=== PATIENT | male | born 1990 | race Caucasian/White ===

== ENCOUNTER → 2024-09-24 14:04 | Outpatient (REF) | payer BC, SELFPAY ==
[2024-10-03 04:36] LABS: HPV, High Risk Not Detected; HPV, High Risk Source Anal
== END ==
LOC: CLAB 14:04
PROVIDERS: ATTENDING PHYSICIAN Surgery
DX: Z86.19 Personal history of other infectious and parasitic diseases (principal)
CPT/HCPCS: 87624; 88112

== ENCOUNTER 2024-11-24 18:22 | Observation (INO) | payer OTHER, SELFPAY ==
[2024-11-24] VITALS (7 sets, daily range): BP systolic 104–133; BP diastolic 71–95; BMI 25.9; BMI 25.5
[2024-11-24 13:17] LABS: % Basophils 0.4 % (0-2); % Eosinophils 0.5 % (0-6); % Immature Granulocytes 0.9 % (0-0.5); % Lymphocytes 8.8 % (20.5-51.1); % Monocytes 5.5 % (1.7-9.3); % Neutrophils 83.9 % (42.2-75.2); Absolute Basophils 0.1 10^3/uL (0-0.2); Absolute Eosinophils 0.1 10^3/uL (0-0.7); Absolute Immature Granulocytes 0.2 10^3/uL (0-0.05); Absolute Lymphocytes 1.7 10^3/uL (1.2-3.4); Absolute Monocytes 1.1 10^3/uL (0.1-0.6); Absolute Neutrophils 15.9 10^3/uL (1.4-6.5); Hematocrit 42.4 % (39.0-52.0); Hemoglobin 14.5 g/dL (13.0-18.0); Mean Corp Hgb Conc. 34.2 g/dL (33.0-37.0); Mean Corpuscular Hgb 30.3 pg (27.0-31.0); Mean Corpuscular Volume 88.7 fL (80.0-94.0); Mean Platelet Volume 10.1 fL (7.4-10.4); Nucleated Red Blood Cells % 0 % (-); Platelet Count 362 10^3/uL (130-400); Red Blood Cell Count 4.78 10^6/uL (4.70-6.10); Red Cell Dist. Width 12.6 % (11.5-14.5)
[2024-11-24 13:32] LABS: ALT (SGPT) 29 U/L (0-50); AST (SGOT) 21 U/L (17-59); Alkaline Phosphatase 86 U/L (38-126); Blood Urea Nitrogen 15 mg/dl (9-20); Calcium 9.2 mg/dl (8.4-10.2); Carbon Dioxide 27 mmol/L (22-30); Chloride 102 mmol/L (98-107); Glucose 106 mg/dl (70-99); Potassium 4.2 mmol/L (3.5-5.1); Sodium 136 mmol/L (135-145); Total Bilirubin 0.7 mg/dl (0.2-1.3); Total Protein 7.1 g/dl (6.3-8.2); eGFR > 60.00
--- NOTE | 2024-11-24 16:38 | ED.GENMED ---
History of Present Illness
General
Chief Complaint: Skin Problem
Source: patient
Exam Limitations: none
Time Seen by Provider: 11/24/24 16:03
Nursing documentation reviewed up to this point in time: agreed with
History of Present Illness
History of Present Illness:
34-year-old male presents emergency department due to worsening redness and drainage from right axillary abscess. This began on . He has had fevers as high as 101. He saw dermatology yesterday and had an I&D, and was started on
doxycycline. The redness worsened.
Past History
Past History
ED Past Medical History: Other (Pneumothorax, cellulitis)
ED Past Surgical History: Other (Lung surgery for pneumothorax)
Social History
Tobacco: Non-smoker
Alcohol: None
Drug: None
Employment: Employed
Review of Systems
Review of Systems
Allergies reviewed?: Yes
All Other Systems: Not applicable
Constitutional: Reports fever and chills
EENT: Reports no symptoms
Respiratory: Reports no symptoms
Cardiac: Reports no symptoms
ABD/GI: Reports no symptoms
: Reports no symptoms
Musculoskeletal: Reports no symptoms
Skin: Reports rash and other (Drainage)
Neurological: Reports no symptoms
Endocrine: Reports no symptoms
Hematologic/Lymphatic: Reports no symptoms
Psychiatric: Reports no symptoms
Phy Exam
Physical Exam
Physical Exam:
Physical Exam
General: no apparent distress, not acutely ill
Neck: supple. no meningeal signs. normal posterior pharynx
Heart: s1/s2 tachycardia, no murmur. equal radial
pulses.
HEENT: Pupils equal round reactive to light, EOMI
Lungs: no acute respiratory distress. clear bilaterally
Abdomen: normal bowel sounds. not tender. no CVAT
Neuro: alert and oriented. no focal neurological deficits cranial nerves II through XII intact
Skin: Erythema, abscess draining in the right axilla
Psychiatric: well kept. interactive and cooperative
Extremities: no edema. no calf tenderness. negative homans. good distal pulses
Sepsis
Sepsis Screening
Sepsis Assessment: Sepsis
Sepsis Screen
Sepsis Screen: Sepsis
Date: 11/24/24
Time: 17:00
Course
Orders/Labs/Results
Orders:
Orders
11/24/24 13:02
CMP [Comprehensive Metabolic Panel] Urgent
Complete Blood Count/With Diff Urgent
11/24/24 16:37
IV Insert/Care/Rem.- Treatment PRN
Vancomycin [Vancocin] 2,000 mg 0.9% Sodium Chloride 500 ml [Nss] 500 ml IV NOW
11/24/24 16:45
Lactic Acid Q4H
Comment: CANCEL 2nd LACTIC ACID IF 1st LACTIC ACID IS LESS THAN 2
11/24/24 20:45
Lactic Acid Q4H
Comment: CANCEL 2nd LACTIC ACID IF 1st LACTIC ACID IS LESS THAN 2
Abnormal Lab Results
11/24/24
13:02
WBC 19.0 H 10^3/uL
(4.8-10.8)
Abs Immat Gran (auto) 0.2 H 10^3/uL
(0-0.05)
Absolute Neuts (auto) 15.9 H 10^3/uL
(1.4-6.5)
Absolute Monos (auto) 1.1 H 10^3/uL
(0.1-0.6)
Immature Gran % 0.9 H %
(0-0.5)
Neutrophils % 83.9 H %
(42.2-75.2)
Lymphocytes % 8.8 L %
(20.5-51.1)
Glucose 106 H mg/dl
(70-99)
11/24/24 13:02
11/24/24 13:02
Vital Signs
Initial and Last Documented VS:
Initial Vital Signs
Temp Pulse Resp BP Pulse Ox
98.7 F 113 18 133/95 100
11/24/24 12:47 11/24/24 12:47 11/24/24 12:47 11/24/24 12:47 11/24/24 12:47
Last Documented Vital Signs
Temp Pulse Resp BP Pulse Ox
98.7 F 113 18 133/95 100
11/24/24 12:47 11/24/24 12:47 11/24/24 12:47 11/24/24 12:47 11/24/24 12:47
Procedures
Incision/Drainage/Joint Aspiration
Right Upper Proximal Arm:
Anethesia: 1% Lidocaine with Epi
Preparation: cleaned with Betadine
Type of procedure: incise and drain
Nature of site: abscess
Description of abscess: greater than 3cm and involves multiple areas
Loculations broken up: Yes
How much fluid was obtained?: number in mls
Fluid description: purulent
Treatment: left open for drainage and antibiotics started
MDM/Problems Addressed
Differential Diagnosis Includes:
Abscess, cellulitis
MDM/Problems Addressed:
34-year-old male with right axillary cellulitis, abscess, fever. Patient failing outpatient treatment. Repeat I&D performed in ED. Vancomycin ordered. Admit to hospitalist.
*Pulse Oximetry
Patient hypoxic: no
*Critical Care Note
Total Time (30-74mins, 75-104mins- exclusive of procedures): Not Applicable
Patient Management
Social determinants of health affecting care: Living situation and Strong social support
Discussion with other providers: Hospitalist
Escalation/DeEscalation of care consider admission/obs:
Admit indicated
ED Attending Note
-
Portions of this chart may have been created with voice recognition software.� Occasional wrong word or��sound alike� substitutions may have occurred due to the inherent limitations of voice recognition software.
Discharge Plan
Departure
Patient Disposition: Admit
Date of Disposition: 11/24/24
Time of Disposition: 16:40
Admit to: Med/Surg
Presentation/result/management discussed w/ accepting MD/DO: Hospitalist
Patient with high blood pressure during this ER visit?: Yes
Condition: Good
Discharge Problem:
Abscess of axilla, right, Cellulitis of axilla, right
Interventions
Interventions:
*Risk Screen - Suicide Last Done: 11/24/24 12:47
*Neglect/Abuse Screening Last Done: 11/24/24 12:47
*ED COVID-19 Vaccine History Last Done: 11/24/24 12:47
Discharge Date and Time
Print Language: ICELANDIC
[2024-11-24 17:11] LABS: Lactic Acid 0.8 mmol/L (0.7-2.0)
[2024-11-24] MEDS: VANCOCIN 540 MG IV (17:43)
--- NOTE | 2024-11-24 18:14 | HPS.HSE ---
Family Physician
-
Family Physician: Gregg Castellanos
Chief Complaint
-
Skin Abscess
History of Present Illness
34 y/o male with past medical history of abnormal skin cells (atypia, history of Melanoma in family), pneumothorax, and left armpit skin abscess, presented with redness and swelling of an area on his right armpit. Patient went to his exercise planner 4
days ago where a right armpit abscess was drained. He was not placed on antibiotics at that time. He had another abscess and went to see a PA in dermatology office yesterday where he had incision and drainage and this time placed on antibiotics. He
had fever at home with Temp ~100.4 F. He also has had chills.
Medical History
Past Medical History
Past Medical History: Reports Other (As per HPI above)
Past Surgical History: Reports Other
Additional Past Surgical History:
Chest Surgery for pneumothorax, Skin lesions removal
Social History
Tobacco: Non-smoker
Alcohol: Occasional
Drug: None
Family History
Family History: Cancer (Melanoma)
Allergies / Home Medications
Allergies reflects when Allergies were last updated in [facility].
Home Medications with original date entered in [facility]
Allergy/Medication List:
Allergies
Allergy/AdvReac Type Severity Reaction Status Date / Time
No Known Allergies Allergy Verified 11/24/24 12:53
Home Medications
acetaminophen 500 mg tablet (Tylenol Extra Strength) 1,000 mg PO Q6HPRN PRN mild pain 11/24/24
doxycycline hyclate 100 mg capsule 100 mg PO BID 11/24/24
mupirocin 2 % topical ointment 1 applic topical BID nose 11/24/24
Review of Systems
-
A 12 point ROS was completed and negative except as noted: Yes
Physical Exam
Vital Signs
Vital Signs
Temp Pulse Resp BP Pulse Ox
98.7 F 113 18 122/79 100
11/24/24 12:47 11/24/24 12:47 11/24/24 12:47 11/24/24 16:49 11/24/24 16:51
Physical Exam
General: No Apparent Distress, Comfortable and Conversant
HEENT: NormoCephalic and Moist mucous membranes
Respiratory: Clear
Cardiac: S1/S2 and Regular Rhythm
GI: Soft, Non Tender and Normal Bowel Sounds
Musculoskeletal: No Cyanosis and No Edema
Skin: Warm, Dry and Other (Erythematous tender area on right axillary region)
Neuro: Awake, Alert, AO x 3 and Nonfocal/grossly intact
Psych: Calm and Intact Judgment/Insight
Laboratory Results
-
11/24/24 13:02
11/24/24 13:02
Laboratory Results
Lactic Acid Cancelled 11/24/24 20:45
Total Bilirubin 0.7 mg/dl (0.2-1.3) 11/24/24 13:02
AST 21 U/L (17-59) 11/24/24 13:02
ALT 29 U/L (0-50) 11/24/24 13:02
Alkaline Phosphatase 86 U/L (38-126) 11/24/24 13:02
Impression/Plan
-
Assessment/Plan
Recurrent Armpit Abscesses
Right Armpit Abscess
Fever and tachycardia -- concern for sepsis
-Left armpit abscess in August 2024, recently 2 right armpit abscesses
-Was taking Doxycycline outpatient
-Vancomycin
-Cultures ordered
-Given recurrent abscesses will consult ID
History of abnormal skin cells (atypia, history of Melanoma in family)
History of Melanoma
History of pneumothorax
DVT Prophylaxis: SCDs. Lovenox.
Code Status: Full Code
--- NOTE | 2024-11-24 19:17 | PHA.VAN.IN ---
Assessment
- Assessment
Renal Function: Unknown baseline
Concomitant Antimicrobials: NONE
- Previous Dosing Experience
Previous Regimen: NONE
AUC Dosing Plan
- Dosing Variables
Dosing Weight (kg): 86.4
Dosing CrCl (ml/min): 125
Vd coefficient (L/kg): 0.7
- Empiric Dosing
Initial / Loading Dose: 2GM
Maintenance Regimen: 1GM IV Q8H
Estimated AUC (mcg*h/mL): 483
Estimated Peak (mcg*h/mL): 28.6
Estimated Trough (mcg/ml): 13.4
Estimated Half Life (H): 6.4
Pharmacokinetics Vancomycin I
- -
Patient Age: 34
Patient Sex: Male
Vancomycin Day #: 1
Indication: Skin And Soft Tissue (RECURRENT ARMPIT ABSCESSES)
Requesting Provider: SHANITA
Height / Weight:
Height 6 ft
Actual Weight 86.4 kg
Pertinent Past Medical History: MELANOMA [FAMILY HX]; DOXYCYCLINE OUTPT
- Vital Signs / Lab Results
Temp Pulse Resp BP Pulse Ox
98.7 F 113 18 122/79 100
11/24/24 12:47 11/24/24 12:47 11/24/24 12:47 11/24/24 16:49 11/24/24 16:51
Lab Results - Hematology
11/24/24
13:02
WBC 19.0 H
Lab Results - Chemistry
11/24/24
13:02
BUN 15
Creatinine 0.8
Albumin 4.0
11/24/24 11/24/24
16:51 20:45
Lactic Acid 0.8 Cancelled
Microbiology Results
11/24/24 17:59 Gram Stain - Preliminary
Axilla
--- NOTE | 2024-11-24 20:46 | PTCARENOTE ---
Pt received from ED to [id number]. Pt oriented to room and call goldsmith.
[2024-11-25] MEDS: VANCOCIN 200 IV ×3 (05:59→22:12)
[2024-11-25 07:26] VITALS: BP 118/71
[2024-11-25 07:36] LABS: % Basophils 0.4 % (0-2); % Eosinophils 0.8 % (0-6); % Immature Granulocytes 0.7 % (0-0.5); % Lymphocytes 11.4 % (20.5-51.1); % Monocytes 6.5 % (1.7-9.3); % Neutrophils 80.2 % (42.2-75.2); Absolute Basophils 0.1 10^3/uL (0-0.2); Absolute Eosinophils 0.1 10^3/uL (0-0.7); Absolute Immature Granulocytes 0.1 10^3/uL (0-0.05); Absolute Lymphocytes 1.4 10^3/uL (1.2-3.4); Absolute Monocytes 0.8 10^3/uL (0.1-0.6); Absolute Neutrophils 9.9 10^3/uL (1.4-6.5); Hematocrit 38.8 % (39.0-52.0); Hemoglobin 13.4 g/dL (13.0-18.0); Mean Corp Hgb Conc. 34.5 g/dL (33.0-37.0); Mean Corpuscular Hgb 30.4 pg (27.0-31.0); Mean Platelet Volume 10.3 fL (7.4-10.4); Nucleated Red Blood Cells % 0 % (-); Platelet Count 334 10^3/uL (130-400); Red Blood Cell Count 4.41 10^6/uL (4.70-6.10); Red Cell Dist. Width 12.6 % (11.5-14.5); White Blood Cell Count 12.3 10^3/uL (4.8-10.8)
[2024-11-25 08:57] LABS: Blood Urea Nitrogen 12 mg/dl (9-20); Calcium 9.2 mg/dl (8.4-10.2); Carbon Dioxide 25 mmol/L (22-30); Chloride 101 mmol/L (98-107); Estimated Creatinine Clearance > 125 ml/min; Glucose 92 mg/dl (70-99); Potassium 4.3 mmol/L (3.5-5.1); Sodium 138 mmol/L (135-145); eGFR > 60.00
--- NOTE | 2024-11-25 09:45 | PHA.VAN.FU ---
Vancomycin Assessment / Plan
- Assessment
Renal Function: Stable
WBC's are: Trending Down
In the past 24 hrs, patient has been: Afebrile
- Dosing Plan
Continue: Vanc 1000mg Q8H
- Monitoring Plan
No level(s) ordered at this time: consider levels in next few days
- Follow Up
Pharmacy will continue to follow.
Vancomycin Follow UP
- -
Patient Age: 34
Patient Sex: Male
Vancomycin Day #: 2
Indication: Skin And Soft Tissue
Requesting Provider: Dr. Shore
Pertinent Antimicrobial Allergies:
NKDA
Height / Weight:
Height 6 ft
Actual Weight 85.077 kg
Pertinent Past Medical History: recurrent armpit abscesses
- Vital Signs / Lab Results
Temp Pulse Resp BP Pulse Ox
98.4 F 104 18 118/71 98
11/25/24 07:26 11/25/24 07:26 11/25/24 07:26 11/25/24 07:26 11/25/24 07:26
Lab Results - Hematology
11/24/24 11/25/24
13:02 06:36
WBC 19.0 H 12.3 H
Lab Results - Chemistry
11/24/24 11/25/24
13:02 06:36
BUN 15 12
Creatinine 0.8 0.7
Estimated Creat Clear > 125
Albumin 4.0
11/24/24 11/24/24
16:51 20:45
Lactic Acid 0.8 Cancelled
Microbiology Results
11/24/24 17:59 Gram Stain - Preliminary
Axilla
--- NOTE | 2024-11-25 13:06 | WOUNDNOTE ---
[facility] RN note: Patient admitted with abscess right arm pit
See H&P for complete history.
PMH: Per chart review, abnormal skin cells (atypia, history of Melanoma in family), pneumothorax, and left armpit skin abscess.
Wound Location and type/assessment: Patient admitted with abscess to right arm pit. He had the wound drained on 11/23. Patient said he was offered antibiotics but declined. The wound has purulent drainage, induration and erythema. He reports
tenderness when pressure applied. Wound was drained again in ER and cultures were taken (pending results) ID has been consulted.
Appetite: Good
Pressure redistribution devices in place: Versa Care Accumax, patient easily turns in bed and ambulates.
Plan: Wound was cleaned with Vashe moistened gauze and covered with Xeroform and silicone foam dressing. Pictures of wound were TT to Dr. Paez.Will confirm orders with hospitalist and update nurse.
Updated care plan and will follow as needed.
Note to case management of equipment requested for discharge:
Recommend follow up at wound care center upon discharge.
--- NOTE | 2024-11-25 14:04 | CON.ID ---
Consultation
-
Date/Time Consultation Requested: 11/25/24 7:43
Date/Time Consultation Performed: 11/25/24 14:05
Requesting Provider: Dr Shore
Performing Provider: Dr Paez
Reason for Consultation: Recurrent armpit abscesses
Chief Complaint / Past History
Chief Complaint
abscess
History of Present Illness
Mr Lea is a 34 year old male with previous L armpit abscess who presented here today for redness and welling of the right armpit. Of note he saw his metallographer 4 days previously for an abscess on the contralateral side - underwent I&D.
Reports a second abscess treated again with I&D and doxycycline. However with increasing redness and fevers to 101
Since arrival here he has been afebrile, bp stable, wbc initially 19 now 12.3, hgb 13.4, plt 334, L shift was noted, cr 0.7, blood cultures x2, wound culture obtained and has grown s aurues, patient is currently on vancomycin, ID is consulted for
assistance with management.
Past History
Additional Past Medical History:
pneumothorax
Additional Past Surgical History:
as per hpi
Allergy History:
No Known Allergies Allergy (Verified 11/24/24 12:53)
Medications Reviewed: Yes
Social History
Tobacco: Non-Smoker
Alcohol: Occasional
Drug: None
Family History
Family History: Other (melanoma)
Review of Systems
Review of Systems
General: Fever and Chills
All systems: All other systems were reviewed and were negative
Vital Signs
Temp Pulse Resp BP Pulse Ox
98.4 F 104 18 118/71 98
11/25/24 07:26 11/25/24 07:26 11/25/24 07:26 11/25/24 07:26 11/25/24 07:26
Physical Exam
Physical Exam
Constitutional: No Acute Distress
Cardiovascular: Regular Rate and S1/S2; Negative Murmur or Rub
Pulmonary: Clear and Symmetric; Negative Wheezes, Rales or Rhonchi
Gastrointestinal: Soft, Non Tender, Non Distended and Normal Bowel Sounds
Skin: Warm and Dry; Negative Rash or Jaundice
Wound: Other (right axilla - large amount of phlegmon, some purulent drainage, several cm of surrounding erythema decreased from previous markings)
Lab / Diagnostic Study Results
11/25/24 06:36
11/25/24 06:36
Abs Immat Gran (auto) 0.1 10^3/uL (0-0.05) H 11/25/24 06:36
Absolute Neuts (auto) 9.9 10^3/uL (1.4-6.5) H 11/25/24 06:36
Absolute Lymphs (auto) 1.4 10^3/uL (1.2-3.4) 11/25/24 06:36
Absolute Monos (auto) 0.8 10^3/uL (0.1-0.6) H 11/25/24 06:36
Absolute Basos (auto) 0.1 10^3/uL (0-0.2) 11/25/24 06:36
Immature Gran % 0.7 % (0-0.5) H 11/25/24 06:36
Neutrophils % 80.2 % (42.2-75.2) H 11/25/24 06:36
Lymphocytes % 11.4 % (20.5-51.1) L 11/25/24 06:36
Monocytes % 6.5 % (1.7-9.3) 11/25/24 06:36
Eosinophils % 0.8 % (0-6) 11/25/24 06:36
Basophils % 0.4 % (0-2) 11/25/24 06:36
Lactic Acid Cancelled 11/24/24 20:45
Microbiology Results
Micro:
11/24/24 17:59 Wound Culture - Preliminary
Axilla Staphylococcus aureus
Gram Stain - Preliminary
11/24/24 18:25 MRSA Screen - Pending
Nose
11/24/24 17:58 Blood Culture - Pending
Blood/Venous
11/24/24 17:58 Blood Culture - Pending
Blood/Venous
Assessment / Plan
Abscess of the armpit - recurrent
Colonization with S aures
- no evidence of hidradenitis suppurativa on exam, however if ongoing abscesses would be on the differential - continue to follow up with his metallographer for management
- s/p I&D, still with a large amount of phlegmon
- follow up blood cultures
- we discussed a decolonization protacol - intranasal mupirocin, hibiclens or bleach baths, cleaning surfaces, washing clothese on hot x2 weeks; I will bring a handout reviewing the details from my office tomorrow
- c/w vancomycin - follow up sensi on the s aureus
- hopefully for dc tomorrow so long as blood cultures remain negative and ideally after sensitives back
[2024-11-25 15:06] VITALS: BP 115/75
--- NOTE | 2024-11-25 15:07 | W.PN.HOSP.TC ---
Today's Communication/Plan
-
Continue antibiotics
Appreciate ID evaluation and recommendations
Assessment / Plan
Assessment / Plan
Physical Exam
General: No Apparent Distress, Comfortable and Conversant
HEENT: Normocephalic and Moist mucous membranes
Respiratory: Clear
Cardiac: S1/S2 and Regular Rhythm
GI: Soft, Non Tender and Normal Bowel Sounds
Musculoskeletal: No Cyanosis and No Edema
Skin: Warm, Dry and Other (Erythematous tender area on right axillary region)
Neuro: Awake, Alert, AO x 3 and Nonfocal/grossly intact
Psych: Calm and Intact Judgment/Insight
Assessment/Plan
Recurrent Armpit Abscesses
Right Armpit Abscess
Fever and tachycardia -- concern for sepsis
-Left armpit abscess in August 2024, recently 2 right armpit abscesses
-Was taking Doxycycline (for 3 doses) outpatient
-Vancomycin for now
-Cultures ordered -- wound culture growing Staphylococcus aureus
-Given recurrent abscesses, consulted ID, appreciate evaluation and recommendations
History of abnormal skin cells (atypia, history of Melanoma in family)
History of Melanoma
History of pneumothorax
DVT Prophylaxis: SCDs. Lovenox.
Code Status: Full Code
Anticipated Discharge: 24 - 48 hours
Subjective/Interval History
-
Date of Service: November 25, 2024
Patient was seen and examined. He denied any fever, chills or any other new symptoms or complaints.
Objective Data
-
Labs:
Laboratory Results
11/25/24
06:36
WBC 12.3 H
Hgb 13.4
Hct 38.8 L
Plt Count 334
Sodium 138
Potassium 4.3
Chloride 101
Carbon Dioxide 25
BUN 12
Creatinine 0.7
Glucose 92
Calcium 9.2
Vital Signs:
Vital Signs
Temp Pulse Resp BP Pulse Ox
97.6 F 111 18 115/75 96
11/25/24 15:06 11/25/24 15:06 11/25/24 15:06 11/25/24 15:06 11/25/24 15:06
I&O
11/24/24 11/25/24 11/26/24
06:59 06:59 06:59
Intake Total 680 / 680
Balance 680 / 680
--- NOTE | 2024-11-25 16:38 | CM ---
CM reviewed chart, patient seen bedside, initial assessment completed. Patient resides with his in a multiple story home, is independent with ADLs/IADLs, denies DME, VN. Patient PCP Gregg Trimble, pharmacy [facility]. OBS form reviewed,
refused to sign, placed in chart. Patient on IV antibiotics. CM will continue to follow for all discharge planning needs.
Plan; home with spouse likely.
[2024-11-25] MEDS: VISBIOME 2 CAP PO (20:15)
[2024-11-25 23:10] VITALS: BP 115/71
[2024-11-26] MEDS: VANCOCIN 200 IV (05:32)
[2024-11-26 06:42] LABS: % Basophils 0.6 % (0-2); % Eosinophils 1.8 % (0-6); % Immature Granulocytes 0.5 % (0-0.5); % Lymphocytes 17.2 % (20.5-51.1); % Monocytes 7.8 % (1.7-9.3); % Neutrophils 72.1 % (42.2-75.2); Absolute Basophils 0.1 10^3/uL (0-0.2); Absolute Eosinophils 0.2 10^3/uL (0-0.7); Absolute Immature Granulocytes 0.1 10^3/uL (0-0.05); Absolute Monocytes 0.9 10^3/uL (0.1-0.6); Absolute Neutrophils 8.2 10^3/uL (1.4-6.5); Hematocrit 39.8 % (39.0-52.0); Hemoglobin 13.9 g/dL (13.0-18.0); Mean Corp Hgb Conc. 34.9 g/dL (33.0-37.0); Mean Corpuscular Hgb 30.6 pg (27.0-31.0); Mean Corpuscular Volume 87.7 fL (80.0-94.0); Mean Platelet Volume 10.9 fL (7.4-10.4); Nucleated Red Blood Cells % 0 % (-); Platelet Count 350 10^3/uL (130-400); Red Blood Cell Count 4.54 10^6/uL (4.70-6.10); Red Cell Dist. Width 12.5 % (11.5-14.5); White Blood Cell Count 11.3 10^3/uL (4.8-10.8)
[2024-11-26 07:24] LABS: Blood Urea Nitrogen 14 mg/dl (9-20); Calcium 9.4 mg/dl (8.4-10.2); Carbon Dioxide 28 mmol/L (22-30); Chloride 104 mmol/L (98-107); Estimated Creatinine Clearance > 125 ml/min; Glucose 93 mg/dl (70-99); Potassium 4.9 mmol/L (3.5-5.1); Sodium 139 mmol/L (135-145); eGFR > 60.00
[2024-11-26 07:55] VITALS: BP 117/82
[2024-11-26] MEDS: VISBIOME 2 CAP PO (08:09)
--- NOTE | 2024-11-26 09:31 | W.PN.HOSP.TC ---
Today's Communication/Plan
-
Discharge today
Assessment / Plan
Assessment / Plan
Physical Exam
General: No Apparent Distress, Comfortable and Conversant
HEENT: Normocephalic and Moist mucous membranes
Respiratory: Clear
Cardiac: S1/S2 and Regular Rhythm
GI: Soft, Non Tender and Normal Bowel Sounds
Musculoskeletal: No Cyanosis and No Edema
Skin: Warm, Dry and Other (Erythematous tender area on right axillary region)
Neuro: Awake, Alert, AO x 3 and Nonfocal/grossly intact
Psych: Calm and Intact Judgment/Insight
Assessment/Plan
Recurrent Armpit Abscesses
Right Armpit Abscess
Fever and tachycardia -- concern for sepsis
-Left armpit abscess in August 2024, recently 2 right armpit abscesses
-Was taking Doxycycline (for 3 doses) outpatient
-Vancomycin given initially -- start Keflex 500 mg PO QID to complete 2 weeks of therapy
-Cultures ordered -- wound culture grew MSSA. MRSA is negative. Blood cultures with no growth to date.
-Given recurrent abscesses, consulted ID, appreciate evaluation and recommendations
History of abnormal skin cells (atypia, history of Melanoma in family)
History of Melanoma
History of pneumothorax
DVT Prophylaxis: SCDs. Lovenox.
Code Status: Full Code
More than 30 minutes spent in discharge including
Final examination of the patient
Summarizing hospital stay
Instructions for continuing care to all relevant caregivers
Preparation of discharge records, prescriptions, and referral forms
Total time spent (in minutes): 36
Anticipated Discharge: Today
Subjective/Interval History
-
Date of Service: November 26, 2024
Patient was seen and examined. Overnight, he reported feeling bloated from antibiotics and requested probiotics to be added, which were added. He otherwise denied any fever, or any other complaints, no new skin abscess.
Objective Data
-
Labs:
Laboratory Results
11/26/24
05:34
WBC 11.3 H
Hgb 13.9
Hct 39.8
Plt Count 350
Sodium 139
Potassium 4.9
Chloride 104
Carbon Dioxide 28
BUN 14
Creatinine 0.8
Glucose 93
Calcium 9.4
Vital Signs:
Vital Signs
Temp Pulse Resp BP Pulse Ox
97.9 F 108 18 117/82 99
11/26/24 07:55 11/26/24 07:55 11/26/24 07:55 11/26/24 07:55 11/26/24 07:55
I&O
11/25/24 11/26/24 11/27/24
06:59 06:59 06:59
Intake Total 680 / 680 2079
Balance 680 / 680 2079
--- NOTE | 2024-11-26 09:49 | W.PN.ID1 ---
Date of Service
Date of Service: November 26, 2024
Today's Communication
- start keflex 500 mg PO QID to complete 2 weeks of therapy
- stable for dc from ID perspective, I will continue to follow up blood cultures
Assessment / Plan
Abscess of the armpit - recurrent
Colonization with S aures
- no evidence of hidradenitis suppurativa on exam, however if ongoing abscesses would be on the differential - continue to follow up with his central office worker for management
- s/p I&D, still with a large amount of phlegmon
- encouraged warm compresses
- follow up blood cultures
- we discussed a decolonization protacol - intranasal mupirocin, hibiclens or bleach baths, cleaning surfaces, washing clothes on hot x2 weeks; I will bring a handout reviewing the details from my office tomorrow
- start keflex 500 mg PO QID to complete 2 weeks of therapy
- stable for dc from ID perspective, I will continue to follow up blood cultures
Chief Complaint
-: Other (abscess due to MSSA)
Subjective / Review of Systems
afebrile
bp stable
much less induration in the armpit, less tenderness
Vital Signs / Physical Exam
Vital Signs
Vital Signs
Temp Pulse Resp BP Pulse Ox
97.9 F 108 18 117/82 99
11/26/24 07:55 11/26/24 07:55 11/26/24 07:55 11/26/24 07:55 11/26/24 07:55
Physical Exam
Constitutional: No Acute Distress
Cardiovascular: Regular Rate
Pulmonary: Symmetric and Non Labored
Gastrointestinal: Non Distended
Wound: Other (I&D site much less erythema and phlegmon, no purulent drainage at this time)
Objective Data
Lab Data
Lab Results
11/26/24 05:34
11/26/24 05:34
Estimated Creat Clear > 125 ml/min 11/26/24 05:34
Lactic Acid Cancelled 11/24/24 20:45
Total Bilirubin 0.7 mg/dl (0.2-1.3) 11/24/24 13:02
AST 21 U/L (17-59) 11/24/24 13:02
ALT 29 U/L (0-50) 11/24/24 13:02
Alkaline Phosphatase 86 U/L (38-126) 11/24/24 13:02
Most recent labs reviewed.
Micro Results:
11/24/24 17:59 Wound Culture - Final
Axilla S aureus-Methicillin Sensitive
Gram Stain - Final
11/24/24 18:25 MRSA Screen - Final
Nose No Methicillin Resistant Staphylococcus aureus isolated.
11/24/24 17:58 Blood Culture - Preliminary
Blood/Venous No Growth in 24 hours- Final report to follow
11/24/24 17:58 Blood Culture - Preliminary
Blood/Venous No Growth in 24 hours- Final report to follow
Care Review
Plan reviewed with: Physician (Dr Shore - [facility])
[2024-11-26] MEDS: KEFLEX 500 MG PO ×2 (10:20→13:02)
--- NOTE | 2024-11-26 10:43 | CM ---
Chart reviewed and plan is to home when stable, will follow for any ABX needs at discharge.
Plan; Home when stable.
[2024-11-26 15:13] VITALS: BP 123/77
== END 2024-11-26 16:32 | disposition home or self-care (01) ==
LOC: 4 WEST ACU 18:22
PROVIDERS: Student in an Organized Health Care Education/Training Program; ADMITTING PHYSICIAN Hospitalist; CONSULT PHYSICIAN Student in an Organized Health Care Education/Training Program; EMERGENCY PHYSICIAN Emergency Medicine; FAMILY PHYSICIAN Family Medicine
DX: L02.411 Cutaneous abscess of right axilla (principal); L03.111 Cellulitis of right axilla; R50.9 Fever, unspecified; R00.0 Tachycardia, unspecified; B95.61 Methicillin susceptible Staphylococcus aureus infection as the cause of diseases classified elsewhere; R14.0 Abdominal distension (gaseous); Z80.8 Family history of malignant neoplasm of other organs or systems
CPT/HCPCS: 10060; 80048; 80053; 83605; 85025; 87040; 87070; 87147; 87186; 87205; 96365; 96366; 99285; G0378